=== PATIENT | male | born 1960 | race Caucasian/White ===

== ENCOUNTER 2017-05-14 06:52 | Emergency (ER) | payer MEDICAID, OTHER ==
[~2017-05-14] VITALS: Ht 182.9 cm; Wt 109.0 kg
[2017-05-14] MEDS ORDERED: KETOROLAC 30MG/ML VIAL IM ONE (10:30)
[2017-05-14 10:38] VITALS: BP 170/107
== END 2017-05-14 12:14 | disposition home or self-care (01) ==
LOC: ER 07:17
DX: M25.462 Effusion, left knee (principal); G89.29 Other chronic pain; F17.210 Nicotine dependence, cigarettes, uncomplicated; I10 Essential (primary) hypertension
CPT/HCPCS: 73562; 96372; 99284; J1885; L1830; Z7610